=== PATIENT | female | born 1990 | race Caucasian/White ===

== ENCOUNTER 2019-05-02 18:19 | Inpatient (IN) | payer MEDICAID ==
[~2019-05-02] VITALS: Ht 162.6 cm; Wt 53.6 kg
[2019-05-02] MEDS ORDERED: ADDERALL 20 MG20 M1 PO (18:38)
[2019-05-02] MEDS ORDERED: TYLENOL W/CODEI1 TAB PO (18:39)
[2019-05-02] MEDS ORDERED: TYLENOL W/CODEI1 TAB (18:39)
--- NOTE | 2019-05-02 18:40 | NUR ---
AMBULATED TO ROOM WITH ER STAFF.
--- NOTE | 2019-05-02 18:40 | NUR ---
PAGE INTO ROBERT MCALLISTER APN TO LET HIM KNOW OF PATIENT ARRIVAL. AWAITING CALL BACK.
[2019-05-02 19:13] LABS: BASOPHILS 0.3 % (0-2); EOSINOPHILS 2.3 % (0-7); HEMATOCRIT 37.9 % (36.0-48.0); HEMOGLOBIN 13.4 g/dL (12-16); IMMATURE GRANULOCYTES 0.3 % (0-5); LYMPHOCYTES 20.9 % (15-50); MCH 33.5 pg (26.0-34.0); MCHC 35.4 g/dL (31.0-37.0); MCV 94.8 fL (80.0-100.0); MEAN PLATELET VOLUME 8.8 fL (7.4-10.4); MONOCYTES 4.7 % (2-11); NEUTROPHILS 71.5 % (40-80); PLATELET COUNT 285 10x3/uL (130-400); RDW 13.4 % (11.5-14.5); WBC 10.9 10x3/uL (4.8-10.8)
--- NOTE | 2019-05-02 19:20 | NUR ---
REPORT RECEIVED, WILL CONTINUE POC. PATIENT IS A/OX4, UP AD KAIT. SITTING IN BED, FAMILY AT BEDSIDE. IV TO LT WRIS, PATENT, SRINIVAS C/D/I. ANDERSON NS, INFUSING @100ML/HR. NO S/S OF DISTRESS OBSERVED, RR EVEN AND UNLABORED ON ROOM AIR. COLA AND CUP OF ICE GIVEN. PATIENT DENIES FURTHER NEEDS. CL IN REACH, BED LOCKED AND LOWERED. WILL CTM.
--- NOTE | 2019-05-02 20:00 | NUR ---
PATIENT REQUESTED SANDWICH TRAY. SANDWICH PROVIDED.
[2019-05-02 20:14] LABS: ANION GAP 21.8 mmol/L (8-16); BILIRUBIN - TOTAL 0.26 mg/dL (0.2-1.3); CALCIUM 8.7 mg/dL (8.5-10.1); CARBON DIOXIDE 16.7 mmol/L (21.0-32.0); POTASSIUM - SERUM 3.5 mmol/L (3.5-5.1); PROTEIN - SERUM 7.4 g/dL (6.4-8.2)
--- NOTE | 2019-05-02 20:15 | NUR ---
PATIENT TO XRAY AND CT
--- NOTE | 2019-05-02 20:45 | NUR ---
PATIENT BACK FROM XRAY AND CT.
--- NOTE | 2019-05-02 21:45 | NUR ---
PATIENT C/O PAIN, IV PAIN MED ADMINISTERED PER ORDERS. WILL CTM.
[2019-05-02 21:47] VITALS: BP 126/85; Ht 162.6 cm; Wt 53.6 kg
--- NOTE | 2019-05-03 00:50 | NUR ---
PATIENT REQUESTED NICOTINE PATCH, ORDERS WERE PUT IN, NICOTINE PATCH ADMINISTERED TO LT SHOULDER @0025.
[2019-05-03 04:00] VITALS: BP 113/69
[2019-05-03 06:20] LABS: APPEARANCE CLEAR (CLEAR); BILIRUBIN NEGATIVE (NEGATIVE); COLOR DY (YELLOW); GLUCOSE NEGATIVE (NEGATIVE); KETONE NEGATIVE (NEGATIVE); NITRITE NEGATIVE (NEGATIVE); PROTEIN NEGATIVE (NEGATIVE); SPECIFIC GRAVITY 1.025 (1.005-1.020); UROBILINOGEN NORMAL (NORMAL)
[2019-05-03 06:21] LABS: AMORPHOUS SEDIMENT >1+ /lpf (NONE SEEN); EPITHELIAL CELLS 0-5 /hpf (0-5); RED CELLS - URINE 0-5 /hpf (0-5); WHITE CELLS - URINE 0-5 /hpf (NEGATIVE)
[2019-05-03 06:59] LABS: BASOPHILS 0.6 % (0-2); EOSINOPHILS 4.9 % (0-7); HEMATOCRIT 35.8 % (36.0-48.0); HEMOGLOBIN 12.5 g/dL (12-16); IMMATURE GRANULOCYTES 0.3 % (0-5); LYMPHOCYTES 42.6 % (15-50); MCH 33.2 pg (26.0-34.0); MCHC 34.9 g/dL (31.0-37.0); MEAN PLATELET VOLUME 9.2 fL (7.4-10.4); MONOCYTES 10.6 % (2-11); PLATELET COUNT 263 10x3/uL (130-400); RBC 3.77 10x6/uL (4.00-5.40); RDW 13.6 % (11.5-14.5)
[2019-05-03 07:01] LABS: CALC OSMOLALITY 284 mosm/kg (275-300); CALCIUM 8.2 mg/dL (8.5-10.1); CARBON DIOXIDE 18.7 mmol/L (21.0-32.0); CHLORIDE - SERUM 110 mmol/L (98-107); CREATININE - SERUM 0.8 mg/dL (0.6-1.3); GLUCOSE 92 mg/dL (74-106); MAGNESIUM - SERUM 1.9 mg/dL (1.8-2.4); PHOSPHOROUS 3.3 mg/dL (2.5-4.9); POTASSIUM - SERUM 3.6 mmol/L (3.5-5.1); SODIUM 141 mmol/L (136-145); UREA NITROGEN 24 mg/dL (7-18); WBC 6.3 10x3/uL (4.8-10.8); eGFR NON AFRICAN AMERICAN > 90 mL/min (90-120)
--- NOTE | 2019-05-03 07:58 | NUR ---
REPORT RECIEVED. PT SITTING UP IN BED SIDE CHAIR EATING BREAKFAST. PT HAS A L WRIST PIV INFUSING NS @ 100. RR EVEN AND UNLABORED. BED LOCKED AND IN LOWEST POSITION. CALL LIGHT WITHIN REACH. WILL CTM
[2019-05-03 10:34] VITALS: BP 122/78
--- NOTE | 2019-05-03 17:21 | MORECARE ---
CASE MANAGEMENT DISCHARGE SUMMARY PATIENT: TERRI VASQUEZ UNIT: [id number] ADM DATE: 05/02/19 AGE: 29 : [birth year] SEX: F ROOM/BED: D.1212 AUTHOR: ALINA,DOC PHYSICIAN: REFERRING PHYSICIAN: RADHA FREITAS MD DATE OF SERVICE: 05/03/19 Discharge Plan Patient Name: TERRI VASQUEZ Facility: [facility]:[place] : 1990 Planned Disposition: Home Anticipated Discharge Date: Discharge Date: Expected LOS: Initial Reviewer: [id number] Initial Review Date: 05/03/2019 Generated: 05/03/19 6:21 pm DCP- Discharge Planning Updated by [email or web address]: Ana Cristina Andre on 05/03/19 4:[address] Patient Name: TERRI VASQUEZ Admission Status: Elective Accout number: [id number] Admission Date: 05-02-2019 : 1990 Admission Diagnosis: Attending: RADHA FREITAS Current LOS: 1 Anticipated DC Date: Planned Disposition: Home Primary Insurance: [employer] [place] [employer] Discharge Planning Comments: CM met with patient to complete initial dc planning assessment. CM educated patient on the CM role and verbal consent given by patient to complete assessment. Patient lives at home with her where she is independent with her care. At discharge patient plans to return home and feels this is a safe discharge. CM discussed availability of home health, rehab services, and medical equipment. Her family will drive her home. Patient denied known discharge needs at this time. CM will continue to follow and will assist as needed with dc plans/needs. Wet Process Assistant Head Miller: Ana Cristina Andre DCPIA - Discharge Planning Initial Assessment Updated by [email or web address]: Ana Cristina Andre on 05/03/19 5:10 pm * Is the patient Alert and Oriented? Yes * How many steps to enter\exit or inside your home? * PCP [place]T[facility] * Pharmacy [facility] * Preadmission Environment Home with Family * ADLs Independent * List name and contact numbers for known caregivers / representatives who currently or will assist patient after discharge: IFTIKHAR VASQUEZ - SPOUSE - [phone] * Verbal permission to speak to the caregivers and representatives has been obtained from the patient. Yes * Community resources currently utilized None * Additional services required to return to the preadmission environment? No * Can the patient safely return to the preadmission environment? Yes * Has this patient been hospitalized within the prior 30 days at any hospital? No Patient Name: TERRI VASQUEZ Page 37725 at 1721 All edits/amendments must be made on the electronic document DICTATION DATE: 05/03/191720 DAMAGE ASSESSOR: MAHENDRA 05/03/191720 RPT#: [id number] DC DATE: STATUS: ADM IN [facility] [address] [place] [address] END OF REPORT
--- NOTE | 2019-05-03 19:15 | NUR ---
REPORT RECEIVED, WILL CONTINUE POC. PATIENT IS A/OX4, UP AD KAIT. NO S/S OF DISTRESS OBSERVED. RR EVEN AND UNLABORED ON ROOM AIR. IV TO LT WRIST INFUSING FLUIDS PER ORDERS, PATENT, DRSG C/D/I. PATIENT DENIES NEEDS AT THIS TIME. CL IN REACH, BED LOCKED AND LOWERED. WILL CTM.
[2019-05-03 20:00] VITALS: BP 131/79
--- NOTE | 2019-05-03 22:20 | NUR ---
PATIENT C/O PAIN. PRN PAIN MED ADMINISTERED. WILL CTM.
--- NOTE | 2019-05-04 03:29 | NUR ---
I have reviewed this patient and I concur with the Shift Assessment completed by the Licensed Practical Nurse today this shift.
[2019-05-04 04:00] VITALS: BP 110/73
[2019-05-04 06:15] LABS: BASOPHILS 0.5 % (0-2); EOSINOPHILS 4.1 % (0-7); HEMATOCRIT 34.1 % (36.0-48.0); HEMOGLOBIN 11.6 g/dL (12-16); IMMATURE GRANULOCYTES 0.3 % (0-5); LYMPHOCYTES 43.3 % (15-50); MCH 32.9 pg (26.0-34.0); MCV 96.6 fL (80.0-100.0); MEAN PLATELET VOLUME 8.9 fL (7.4-10.4); MONOCYTES 8.7 % (2-11); NEUTROPHILS 43.1 % (40-80); PLATELET COUNT 234 10x3/uL (130-400); RBC 3.53 10x6/uL (4.00-5.40); WBC 5.9 10x3/uL (4.8-10.8)
[2019-05-04 06:26] LABS: CALC OSMOLALITY 286 mosm/kg (275-300); CALCIUM 7.9 mg/dL (8.5-10.1); CARBON DIOXIDE 19.3 mmol/L (21.0-32.0); CHLORIDE - SERUM 114 mmol/L (98-107); CREATININE - SERUM 0.7 mg/dL (0.6-1.3); GLUCOSE 87 mg/dL (74-106); MAGNESIUM - SERUM 1.9 mg/dL (1.8-2.4); POTASSIUM - SERUM 3.8 mmol/L (3.5-5.1); SODIUM 144 mmol/L (136-145); eGFR NON AFRICAN AMERICAN > 90 mL/min (90-120)
[2019-05-04 06:29] LABS: PHOSPHOROUS 4.2 mg/dL (2.5-4.9); UREA NITROGEN 14 mg/dL (7-18)
--- NOTE | 2019-05-04 07:05 | NUR ---
PT LYING IN BED. RESTING QUIETLY. CHEST RISING AND FALLING. ROOM AIR. LEFT FA 20G NS AT 100. AT BEDSIDE. BED LOW. CL IN REACH.
[2019-05-04 07:24] VITALS: BP 117/72
[2019-05-04 11:30] VITALS: BP 121/72
--- NOTE | 2019-05-04 12:00 | NUR ---
PT STATES SHE WOULD LIKE THE REFERRAL TO THE [facility] QUIT LINE. PT LAYING BED AND HAS NO FURTHER NEEDS AT THIS TIME. BED LOW. CL IN REACH.
[2019-05-04 19:25] VITALS: BP 131/81
--- NOTE | 2019-05-04 19:25 | NUR ---
BEDSIDE REPORT COMPLETE. INTRODUCED SELF TO PT AND PT . ALERT AND ORIENTED X4. REQUESTS PAIN MEDICATION WHEN AVAILABLE. INFORMED PT NOT AVAILABLE UNTIL 1999. PT VERBALIZED UNDERSTANDING. LEFT FOREARM INFUSING NS @ 100ML/HR. SITE WITHOUT REDNESS OR SWELLING. DRESSING C/D/I. VS STABLE. SHIFT ASSESSMENT COMPLETED. NO OTHER CONCERNS VOICED. CALL LIGHT AND WATER WITHIN REACH, FALL PRECAUTIONS IN PLACE. WILL CONTINUE TO MONITOR
--- NOTE | 2019-05-05 00:16 | NUR ---
PT LYING IN BED WATCHING TV WITH AT BEDSIDE. DENIES ANY NEEDS OR PAIN. WILL CONTINUE TO MONITOR
[2019-05-05 00:20] VITALS: BP 134/88
--- NOTE | 2019-05-05 01:59 | NUR ---
PT LYING IN BED ON RIGHT SIDE EYES CLOSED RESTING QUIETLY.
[2019-05-05 04:46] VITALS: BP 114/68
--- NOTE | 2019-05-05 05:22 | NUR ---
PT LYING IN BED WITH EYES CLOSED RESTING QUIETLY.
[2019-05-05 06:51] LABS: BASOPHILS 0.6 % (0-2); HEMATOCRIT 34.6 % (36.0-48.0); HEMOGLOBIN 11.8 g/dL (12-16); IMMATURE GRANULOCYTES 0.4 % (0-5); LYMPHOCYTES 46.8 % (15-50); MCH 33.2 pg (26.0-34.0); MCHC 34.1 g/dL (31.0-37.0); MCV 97.5 fL (80.0-100.0); MEAN PLATELET VOLUME 8.7 fL (7.4-10.4); MONOCYTES 8.1 % (2-11); NEUTROPHILS 40.1 % (40-80); PLATELET COUNT 230 10x3/uL (130-400); RBC 3.55 10x6/uL (4.00-5.40); RDW 13.7 % (11.5-14.5); WBC 4.9 10x3/uL (4.8-10.8)
[2019-05-05 07:07] LABS: CALC OSMOLALITY 284 mosm/kg (275-300); CALCIUM 8.4 mg/dL (8.5-10.1); CARBON DIOXIDE 21.8 mmol/L (21.0-32.0); CHLORIDE - SERUM 112 mmol/L (98-107); CREATININE - SERUM 0.7 mg/dL (0.6-1.3); GLUCOSE 82 mg/dL (74-106); MAGNESIUM - SERUM 1.6 mg/dL (1.8-2.4); POTASSIUM - SERUM 4.1 mmol/L (3.5-5.1); SODIUM 144 mmol/L (136-145); UREA NITROGEN 9 mg/dL (7-18); eGFR NON AFRICAN AMERICAN > 90 mL/min (90-120)
--- NOTE | 2019-05-05 07:36 | NUR ---
ROUNDING DONE WTIH BOTH PATIENT AND MALE MEMBER IN BED, TATYANA NEEDS. ON ROOM AIR. LEFT WRIST PIV SEEN WITH NS INFUSING AT 100 CC/HR. ON EP, K+ IS 4.1, MAG 1.6, WILL COVER THE MAG WITH ORAL SUPPLEMENTS ORDERED. WILL CPOC.
--- NOTE | 2019-05-05 08:39 | NUR ---
CALLED ANGELICA CAZARES APN FOR NEW PAIN MEDICATION ORDERS IN CASE PATIENT IS WANTING TO GO HOME AND SHE IS ON IV MORPHINE. AWAITING CALL BACK. [phone]-ANGELICA CAZARES APN TO CALL BACK WITH NEW ORDERS FOR TYLENOL.
--- NOTE | 2019-05-05 09:03 | NUR ---
PATIENT TO REFUSE THE LOVENOX INJECTION. SHE IS AMBULATING IN THE ROOM.
[2019-05-05 09:06] VITALS: BP 113/69
[2019-05-05] MEDS ORDERED: OMNICEF300 MG PO (10:40)
[2019-05-05] MEDS ORDERED: ZITHROMAX250 MG PO (10:40)
--- NOTE | 2019-05-05 11:01 | NUR ---
PER PATIENT REQUEST I CALLED [facility] [address] FOR ANTIBIOTICS. SPOKE WITH STEVEN-PHARMACIST.
--- NOTE | 2019-05-05 11:59 | MORECARE ---
CASE MANAGEMENT DISCHARGE SUMMARY PATIENT: TERRI VASQUEZ UNIT: [id number] ADM DATE: 05/02/19 AGE: 29 : [birth year] SEX: F ROOM/BED: D.1212 AUTHOR: ALINA,DOC PHYSICIAN: REFERRING PHYSICIAN: RADHA FREITAS MD DATE OF SERVICE: 05/05/19 Discharge Plan Patient Name: TERRI VASQUEZ Facility: [facility]:[place] : 1990 Planned Disposition: Home Anticipated Discharge Date: Discharge Date: 05/05/2019 Expected LOS: Initial Reviewer: [email or web address] Initial Review Date: 05/03/2019 Generated: 05/05/19 12:59 pm Comments DCP- Discharge Planning Updated by [email or web address]: Alecia Negron on 05/05/19 10:[address] CM contacted patient regarding need for home UD. Patient has [employer] Private Options insurance. Patient states she has no preference for DME provider. Verified patient's address as [address] [place] [address] and phone #[phone]. CM called [facility] and there was no option for O/C contact. Contacted [employer] @1100, provided patients information to Radha. @[phone] David, O/C insurance claims representative for [employer] returned my call , provided the patient's room number and name. David states it will be 1 1/2-2 hours before he arrives, as he will drive from [place]. CM notified the patient's nurse of [facility]. Alecia Negron RN DCP- Discharge Planning Updated by [email or web address]: Ana Cristina Andre on 05/03/19 4:[address] Patient Name: TERRI VASQUEZ Admission Status: Elective Accout number: [id number] Admission Date: 05-02-2019 : 1990 Admission Diagnosis: Attending: RADHA FREITAS Current LOS: 1 Anticipated DC Date: Planned Disposition: Home Primary Insurance: [employer] [place] PRIVATE OPTIONS [facility] Discharge Planning Comments: CM met with patient to complete initial dc planning assessment. CM educated patient on the CM role and verbal consent given by patient to complete assessment. Patient lives at home with her where she is independent with her care. At discharge patient plans to return home and feels this is a safe discharge. CM discussed availability of home health, rehab services, and medical equipment. Her family will drive her home. Patient denied known discharge needs at this time. CM will continue to follow and will assist as needed with dc plans/needs. Resp Therapist: Ana Cristina Andre DCPIA - Discharge Planning Initial Assessment Updated by [email or web address]: Ana Cristina Andre on 05/03/19 5:10 pm * Is the patient Alert and Oriented? Yes * How many steps to enter\exit or inside your home? * PCP FREITAS * Pharmacy [facility] * Preadmission Environment Home with Family * ADLs Independent * List name and contact numbers for known caregivers / representatives who currently or will assist patient after discharge: IFTIKHAR VASQUEZ - SPOUSE - [phone] * Verbal permission to speak to the caregivers and representatives has been obtained from the patient. Yes * Community resources currently utilized None * Additional services required to return to the preadmission environment? No * Can the patient safely return to the preadmission environment? Yes * Has this patient been hospitalized within the prior 30 days at any hospital? No Last DP export: 05/03/19 4:21 p Patient Name: TERRI VASQUEZ Page 02849 at 1159 All edits/amendments must be made on the electronic document DICTATION DATE: 05/05/191158 STRATEGIC INTELLIGENCE OFFICER: MAHENDRA 05/05/19 115 RPT#: [id number] DC DATE:05/05/19 STATUS: DIS IN [facility] [address] [place] [address] END OF REPORT
--- NOTE | 2019-05-05 12:05 | MORECARE ---
CASE MANAGEMENT DISCHARGE SUMMARY PATIENT: TERRI VASQUEZ UNIT: [id number] ADM DATE: 05/02/19 AGE: 29 : [birth year] SEX: F ROOM/BED: D.1212 AUTHOR: ALINA,DOC PHYSICIAN: REFERRING PHYSICIAN: RADHA FREITAS MD DATE OF SERVICE: 05/05/19 Discharge Plan Patient Name: TERRI VASQUEZ Facility: [facility]:[place] : 1990 Planned Disposition: Home Anticipated Discharge Date: Discharge Date: 05/05/2019 Expected LOS: Initial Reviewer: [email or web address] Initial Review Date: 05/03/2019 Generated: 05/05/19 1:05 pm Comments DCP- Discharge Planning Updated by [email or web address]: Alecia Negron on 05/05/19 11:[address] CM contacted patient regarding need for home UD. Patient has [employer] Private Options insurance. Patient states she has no preference for DME provider. Verified patient's address as [address] [place] [address] and phone #[phone]. CM called [facility] and there was no option for O/C contact. Contacted [employer] @1100, provided patients information to Radha. @[phone] David, O/C associate financial representative for [employer] returned my call , provided the patient's room number and name. David states it will be 1 1/2-2 hours before he arrives, as he will drive from [place]. Faxed order and face sheet to [employer] , [phone]. CM notified the patient's nurse of [facility]. Alecia Negron RN DCP- Discharge Planning Updated by [email or web address]: Ana Cristina Andre on 05/03/19 4:[address] Patient Name: TERRI VASQUEZ Admission Status: Elective Accout number: [id number] Admission Date: 05-02-2019 : 1990 Admission Diagnosis: Attending: RADHA FREITAS Current LOS: 1 Anticipated DC Date: Planned Disposition: Home Primary Insurance: [employer] [place] PRIVATE OPTIONS [facility] Discharge Planning Comments: CM met with patient to complete initial dc planning assessment. CM educated patient on the CM role and verbal consent given by patient to complete assessment. Patient lives at home with her where she is independent with her care. At discharge patient plans to return home and feels this is a safe discharge. CM discussed availability of home health, rehab services, and medical equipment. Her family will drive her home. Patient denied known discharge needs at this time. CM will continue to follow and will assist as needed with dc plans/needs. Center Customer Service Associate: Ana Cristina Andre DCPIA - Discharge Planning Initial Assessment Updated by [email or web address]: Ana Cristina Andre on 05/03/19 5:10 pm * Is the patient Alert and Oriented? Yes * How many steps to enter\exit or inside your home? * PCP FREITAS * Pharmacy [facility] * Preadmission Environment Home with Family * ADLs Independent * List name and contact numbers for known caregivers / representatives who currently or will assist patient after discharge: IFTIKHAR VASQUEZ - SPOUSE - [phone] * Verbal permission to speak to the caregivers and representatives has been obtained from the patient. Yes * Community resources currently utilized None * Additional services required to return to the preadmission environment? No * Can the patient safely return to the preadmission environment? Yes * Has this patient been hospitalized within the prior 30 days at any hospital? No Last DP export: 05/05/19 10:59 a Patient Name: TERRI VASQUEZ Page 65945 at 1205 All edits/amendments must be made on the electronic document DICTATION DATE: 05/05/19 1205 CHEMICAL STRENGTH TESTER: MAHENDRA 05/05/19 1205 RPT#: [id number] DC DATE:05/05/19 STATUS: DIS IN [facility] [address] [place] [address] END OF REPORT
--- NOTE | 2019-05-05 13:59 | NUR ---
ALBUTEROL SULFATE 2.5 MG UPDRAFT ADDED TO LIST OF HOME MEDS TO [facility] [address] TO BE DONE 4 X DAY.
[2019-05-05] MEDS ORDERED: ALBUTEROL2.5 MG/3 M INH (14:00)
--- NOTE | 2019-05-07 09:11 | MORECARE ---
CASE MANAGEMENT DISCHARGE SUMMARY PATIENT: TERRI VASQUEZ UNIT: [id number] ADM DATE: 05/02/19 AGE: 29 : [birth year] SEX: F ROOM/BED: D.1212 AUTHOR: ALINA,DOC PHYSICIAN: REFERRING PHYSICIAN: RADHA FREITAS MD DATE OF SERVICE: 05/07/19 Discharge Plan Patient Name: TERRI VASQUEZ Facility: [facility]:[place] : 1990 Planned Disposition: Home Anticipated Discharge Date: Discharge Date: 05/05/2019 Expected LOS: Initial Reviewer: [email or web address] Initial Review Date: 05/03/2019 Generated: 05/07/19 10:11 am Comments DCP- Discharge Planning Updated by [email or web address]: Alecia Negron on 05/05/19 11:[address] CM contacted patient regarding need for home UD. Patient has [employer] Private Options insurance. Patient states she has no preference for DME provider. Verified patient's address as [address] [place] [address] and phone #[phone]. CM called [facility] and there was no option for O/C contact. Contacted [employer] @1100, provided patients information to Radha. @[phone] David, O/C technical services representative for [employer] returned my call , provided the patient's room number and name. David states it will be 1 1/2-2 hours before he arrives, as he will drive from [place]. Faxed order and face sheet to [employer] , [phone]. CM notified the patient's nurse of [facility]. Alecia Negron RN DCP- Discharge Planning Updated by [email or web address]: Ana Cristina Andre on 05/03/19 4:[address] Patient Name: TERRI VASQUEZ Admission Status: Elective Accout number: [id number] Admission Date: 05-02-2019 : 1990 Admission Diagnosis: Attending: RADHA FREITAS Current LOS: 1 Anticipated DC Date: Planned Disposition: Home Primary Insurance: [employer] [place] PRIVATE OPTIONS [facility] Discharge Planning Comments: CM met with patient to complete initial dc planning assessment. CM educated patient on the CM role and verbal consent given by patient to complete assessment. Patient lives at home with her where she is independent with her care. At discharge patient plans to return home and feels this is a safe discharge. CM discussed availability of home health, rehab services, and medical equipment. Her family will drive her home. Patient denied known discharge needs at this time. CM will continue to follow and will assist as needed with dc plans/needs. Box Toe Maker: Ana Cristina Andre DCPIA - Discharge Planning Initial Assessment Updated by [email or web address]: Ana Cristina Andre on 05/03/19 5:10 pm * Is the patient Alert and Oriented? Yes * How many steps to enter\exit or inside your home? * PCP FREITAS * Pharmacy [facility] * Preadmission Environment Home with Family * ADLs Independent * List name and contact numbers for known caregivers / representatives who currently or will assist patient after discharge: IFTIKHAR VASQUEZ - SPOUSE - [phone] * Verbal permission to speak to the caregivers and representatives has been obtained from the patient. Yes * Community resources currently utilized None * Additional services required to return to the preadmission environment? No * Can the patient safely return to the preadmission environment? Yes * Has this patient been hospitalized within the prior 30 days at any hospital? No Last DP export: 05/05/19 11:06 a Patient Name: TERRI VASQUEZ Page 18471 at 0911 All edits/amendments must be made on the electronic document DICTATION DATE: 05/07/19910 AT RISK SPECIALIST: MAHENDRA 05/07/19910 RPT#: [id number] DC DATE:05/05/19 STATUS: DIS IN [facility] [address] [place] [address] END OF REPORT
== END 2019-05-05 11:44 | disposition home or self-care (01) | DRG 195 ==
LOC: D.M3 18:19
PROVIDERS: Emergency Medicine; ADMIT Family Medicine; ATTEND Family Medicine
DX: J18.1 Lobar pneumonia, unspecified organism (principal); R04.0 Epistaxis; D64.9 Anemia, unspecified; K21.9 Gastro-esophageal reflux disease without esophagitis; J31.0 Chronic rhinitis; R00.0 Tachycardia, unspecified; Z72.0 Tobacco use

== ENCOUNTER 2019-07-03 11:13 | Emergency (ER) | payer MEDICAID ==
[~2019-07-03] VITALS: Ht 162.6 cm; Wt 53.6 kg
[~2019-07-03 11:13] MED LIST: ADDERALL 20 MG20 M1 PO; ALBUTEROL2.5 MG/3 M INH; OMNICEF300 MG PO; TYLENOL W/CODEI1 TAB; TYLENOL W/CODEI1 TAB PO; ZITHROMAX250 MG PO
[2019-07-03 11:42] VITALS: Ht 162.6 cm; Wt 53.6 kg
[2019-07-03 12:14] LABS: BASOPHILS 0.5 % (0-2); EOSINOPHILS 5.2 % (0-7); HEMATOCRIT 40.2 % (36.0-48.0); HEMOGLOBIN 13.4 g/dL (12-16); IMMATURE GRANULOCYTES 0.7 % (0-5); LYMPHOCYTES 29.1 % (15-50); MCH 33.3 pg (26.0-34.0); MCHC 33.3 g/dL (31.0-37.0); MCV 99.8 fL (80.0-100.0); MEAN PLATELET VOLUME 8.8 fL (7.4-10.4); MONOCYTES 6.4 % (2-11); NEUTROPHILS 58.1 % (40-80); PLATELET COUNT 329 10x3/uL (130-400); RBC 4.03 10x6/uL (4.00-5.40); RDW 13.8 % (11.5-14.5)
[2019-07-03 12:24] LABS: CALC OSMOLALITY 283 mosm/kg (275-300); CALCIUM 8.8 mg/dL (8.5-10.1); CARBON DIOXIDE 18.7 mmol/L (21.0-32.0); CHLORIDE - SERUM 109 mmol/L (98-107); CREATININE - SERUM 0.8 mg/dL (0.6-1.3); GLUCOSE 91 mg/dL (74-106); POTASSIUM - SERUM 4.1 mmol/L (3.5-5.1); SODIUM 142 mmol/L (136-145); UREA NITROGEN 14 mg/dL (7-18); eGFR NON AFRICAN AMERICAN > 90 mL/min (90-120)
[2019-07-03 12:30] LABS: APPEARANCE CLEAR (CLEAR); BACTERIA FEW /hpf (NEGATIVE); BILIRUBIN NEGATIVE (NEGATIVE); COLOR YELLOW (YELLOW); EPITHELIAL CELLS 0-5 /hpf (0-5); GLUCOSE NEGATIVE (NEGATIVE); KETONE NEGATIVE (NEGATIVE); NITRITE NEGATIVE (NEGATIVE); PROTEIN NEGATIVE (NEGATIVE); RED CELLS - URINE OCC /hpf (0-5); SPECIFIC GRAVITY 1.015 (1.005-1.020); UROBILINOGEN NORMAL (NORMAL); WHITE CELLS - URINE NSEEN /hpf (NEGATIVE)
[2019-07-03 12:30] LABS: ALBUMIN 3.7 g/dL (3.4-5.0); ALKALINE PHOSPHATASE 86 U/L (46-116); ALT (SGPT) 23 U/L (10-68); BILIRUBIN - TOTAL 0.33 mg/dL (0.2-1.3); PROTEIN - SERUM 8.1 g/dL (6.4-8.2)
[2019-07-03] MEDS ORDERED: STERAPRED 5MG 65 M1 PO (16:20)
[2019-07-03] MEDS ORDERED: OMEPRAZOLE20 M1 PO (16:20)
[2019-07-03 16:40] VITALS: BP 106/61
== END 2019-07-03 16:41 | disposition home or self-care (01) ==
LOC: D.ER 11:13
PROVIDERS: Family Medicine
DX: M94.0 Chondrocostal junction syndrome [Tietze] (principal); F41.9 Anxiety disorder, unspecified; R06.02 Shortness of breath